=== PATIENT | male | born 1970 | race Asian ===

== ENCOUNTER → 2022-06-02 | Outpatient (CLI) | payer OTHER ==
[2022-06-03 05:06] LABS: RUBEOLA (MEASLES) IGG >300.0 AU/mL (Immune >16.4)
[2022-06-03 07:06] LABS: RUBELLA AB IGG-REFLAB 2.47 index (Immune >0.99)
== END | disposition home or self-care (01) ==
LOC: LABMN 09:05
PROVIDERS: ATTEND Internal Medicine
DX: Z02.1 Encounter for pre-employment examination (principal)
CPT/HCPCS: 86706; 86735; 86762; 86765; 86787